=== PATIENT | female | born 1975 | race Caucasian/White ===

== ENCOUNTER → 2016-10-05 | Outpatient (REF) | payer BC ==
[~2016-10-05] MED LIST: ATEN25TA PO; CYTO25TA PO; DOXE150C7 PO; DULO30CA PO; LYRI200C PO; PLAQUENIL PO
[2016-10-05 12:17] LABS: PERCENT SATURATION 20.8 % (13.2-37.4)
[2016-10-05 12:20] LABS: FREE T4 0.51 NG/DL (0.76-1.46)
== END ==
LOC: M SFHCCLAY 07:36
PROVIDERS: ATTEND Family Medicine
DX: M79.7 Fibromyalgia (principal); Z98.84 Bariatric surgery status; E03.9 Hypothyroidism, unspecified; M85.80 Other specified disorders of bone density and structure, unspecified site

== ENCOUNTER → 2016-11-02 | Outpatient (REF) | payer BC ==
[2016-11-02 11:50] LABS: MEAN CORPUSCULAR HEMOGLOBIN 28.3 pg (27.0-33.0); MEAN CORPUSCULAR HGB CONC 33.5 g/dl (32.0-36.5); MEAN CORPUSCULAR VOLUME 84.5 fl (80.0-96.0); RED CELL DISTRIBUTION WIDTH 13.3 % (11.5-14.5); WHITE BLOOD COUNT 6.3 K/mm3 (4.0-10.0)
[2016-11-02 12:19] LABS: FERRITIN 73 NG/ML (8-252)
[2016-11-02 12:20] LABS: ANION GAP 6 MEQ/L (8-16); BLOOD UREA NITROGEN 12 MG/DL (7-18); CALCIUM LEVEL 9.2 MG/DL (8.5-10.1); CARBON DIOXIDE LEVEL 33 MEQ/L (21-32); CHLORIDE LEVEL 102 MEQ/L (98-107); CREATININE FOR GFR 0.62 MG/DL (0.55-1.02); GLOMERULAR FILTRATION RATE > 60.0 (>58); GLUCOSE, FASTING 98 MG/DL (70-105); POTASSIUM SERUM 4.7 MEQ/L (3.5-5.1); SODIUM LEVEL 141 MEQ/L (136-145)
== END ==
LOC: M SFHCCLAY 07:06
PROVIDERS: ATTEND Family Medicine
DX: M79.7 Fibromyalgia (principal); G89.4 Chronic pain syndrome; Z98.84 Bariatric surgery status; E56.9 Vitamin deficiency, unspecified

== ENCOUNTER → 2016-11-12 | Outpatient (CLI) | payer BC | LOC: M LAB 07:42 | PROVIDERS: ATTEND Family Medicine | DX: M79.7 Fibromyalgia (principal); Z98.84 Bariatric surgery status; E03.9 Hypothyroidism, unspecified; M85.80 Other specified disorders of bone density and structure, unspecified site ==

== ENCOUNTER → 2016-12-03 | Outpatient (REF) | payer BC ==
[2016-12-03 11:39] LABS: FERRITIN 52 NG/ML (8-252)
[2016-12-03 11:41] LABS: FREE T4 0.68 NG/DL (0.76-1.46)
== END ==
LOC: M SFHCCLAY 07:23
PROVIDERS: ATTEND Family Medicine
DX: E21.3 Hyperparathyroidism, unspecified (principal); E61.1 Iron deficiency; M79.7 Fibromyalgia

== ENCOUNTER → 2016-12-21 | Outpatient (CLI) | payer BC ==
--- NOTE | 2016-12-21 16:14 | REP ---
MRI brain without contrast: History: Muscle hypertonicity. . Comparison study: August 05, 2015. Technique: Axial and sagittal imaging planes are utilized for T1 and T2-weighted scans. Sequences include spin-echo, fast spin echo, FLAIR, and diffusion weighted sequences. MRI findings: No bony calvarial lesion is seen. Craniocervical junction and upper cervical cord are normal in appearance. There is no MR evidence of significant paranasal sinus disease. No intraorbital abnormality is seen. The lateral, third, and fourth ventricles are normal in size and position. Qureshi-white differentiation pattern is intact above and below the tentorium. There is no evidence of intracranial hemorrhage. No mass, infarction, extra-axial fluid collection or midline shift is seen. No abnormal white matter lesion is seen. Impression: Negative noncontrast brain MRI study. Signed by Fernando Earl MD 12/21/2016 03:59 P
== END ==
LOC: M RAD 14:52
PROVIDERS: ATTEND Family Medicine
DX: M62.89 Other specified disorders of muscle (principal)

== ENCOUNTER → 2017-01-14 | Outpatient (REF) | payer BC ==
[2017-01-14 12:22] LABS: MEAN CORPUSCULAR HEMOGLOBIN 28.2 pg (27.0-33.0); MEAN CORPUSCULAR HGB CONC 32.8 g/dl (32.0-36.5); MEAN CORPUSCULAR VOLUME 85.9 fl (80.0-96.0); RED CELL DISTRIBUTION WIDTH 13.5 % (11.5-14.5); WHITE BLOOD COUNT 6.6 K/mm3 (4.0-10.0)
[2017-01-15 14:13] LABS: TISSUE TRANSGLUTAMINASE IgG <2 U/mL (0-5)
== END ==
LOC: M SFHCCLAY 06:57
PROVIDERS: ATTEND Family Medicine
DX: D50.9 Iron deficiency anemia, unspecified (principal)

== ENCOUNTER → 2017-02-23 | Outpatient (REF) | payer BC ==
[~2017-02-23] MED LIST changes: +AMOX500C PO; -CYTO25TA PO; +CYTO25TA6 PO; +LEVO25TA5 PO
[2017-02-23 11:18] LABS: MEAN CORPUSCULAR HEMOGLOBIN 28.7 pg (27.0-33.0); MEAN CORPUSCULAR HGB CONC 33.5 g/dl (32.0-36.5); MEAN CORPUSCULAR VOLUME 85.7 fl (80.0-96.0); RED CELL DISTRIBUTION WIDTH 13.3 % (11.5-14.5); WHITE BLOOD COUNT 6.5 K/mm3 (4.0-10.0)
[2017-02-23 11:28] LABS: PERCENT SATURATION 14.6 % (13.2-37.4)
== END ==
LOC: M SFHCCLAY 07:04
PROVIDERS: ATTEND Family Medicine
DX: E61.1 Iron deficiency (principal)

== ENCOUNTER 2017-03-07 08:00 | Outpatient (CLI) | payer BC ==
[~2017-03-07] VITALS: Ht 185.4 cm; Wt 130.9 kg
[~2017-03-07 08:00] MED LIST changes: -AMOX500C PO; -LEVO25TA5 PO
[2017-03-07] MEDS ORDERED: IRON SUCROSE 500 MG in NS 250 ML IV ONE (09:00)
[2017-03-07] MEDS ORDERED: AMOX500C PO (16:09)
[2017-03-07] MEDS ORDERED: LEVO25TA5 PO (16:13)
== END 2017-03-07 12:40 | disposition home or self-care (01) ==
LOC: M INFU 08:00
PROVIDERS: ATTEND Family Medicine
DX: D50.9 Iron deficiency anemia, unspecified (principal); I10 Essential (primary) hypertension; E78.00 Pure hypercholesterolemia, unspecified; M19.90 Unspecified osteoarthritis, unspecified site; M32.9 Systemic lupus erythematosus, unspecified; Z98.84 Bariatric surgery status; Z79.899 Other long term (current) drug therapy; Z88.2 Allergy status to sulfonamides; Z88.8 Allergy status to other drugs, medicaments and biological substances
CPT/HCPCS: 96365; 96366; J1756

== ENCOUNTER 2017-04-01 08:02 | Outpatient (CLI) | payer BC ==
[~2017-04-01] VITALS: Ht 185.4 cm; Wt 103.9 kg
[~2017-04-01 08:02] MED LIST changes: +AMOX500C PO; +IRON SUCROSE 500 MG in NS 250 ML IV ONE; +LEVO25TA5 PO
== END 2017-04-01 12:30 | disposition home or self-care (01) ==
LOC: M INFU 08:02
PROVIDERS: ATTEND Family Medicine
DX: D50.9 Iron deficiency anemia, unspecified (principal); Z98.84 Bariatric surgery status; Z98.0 Intestinal bypass and anastomosis status; Z88.2 Allergy status to sulfonamides; Z88.8 Allergy status to other drugs, medicaments and biological substances; Z79.52 Long term (current) use of systemic steroids; Z79.899 Other long term (current) drug therapy
CPT/HCPCS: 96365; 96366; J1756

== ENCOUNTER → 2017-05-04 | Outpatient (REF) | payer BC ==
[~2017-05-04] MED LIST changes: -IRON SUCROSE 500 MG in NS 250 ML IV ONE
[2017-05-06 00:55] LABS: Lyme Disease IgG/IgM Antibodie <0.91 ISR (0.00-0.90); Lyme Disease IgM Ab Quantitati <0.80 index (0.00-0.79)
== END ==
LOC: M SFHCLERA 09:54
PROVIDERS: ATTEND Physician Assistant
DX: M25.561 Pain in right knee (principal); M25.562 Pain in left knee

== ENCOUNTER → 2017-07-29 | Outpatient (REF) | payer BC ==
[2017-07-29 11:44] LABS: IONIZED CALCIUM 4.9 MG/DL (4.5-5.3)
[2017-07-29 12:14] LABS: ANION GAP 7 MEQ/L (8-16); BLOOD UREA NITROGEN 9 MG/DL (7-18); CALCIUM LEVEL 8.8 MG/DL (8.5-10.1); CARBON DIOXIDE LEVEL 28 MEQ/L (21-32); CHLORIDE LEVEL 106 MEQ/L (98-107); CREATININE FOR GFR 0.54 MG/DL (0.55-1.02); FREE T4 0.44 NG/DL (0.76-1.46); GLOMERULAR FILTRATION RATE > 60.0 (>58); GLUCOSE, FASTING 93 MG/DL (70-105); POTASSIUM SERUM 4.3 MEQ/L (3.5-5.1); SODIUM LEVEL 141 MEQ/L (136-145)
== END ==
LOC: M SFHCCLAY 07:09
PROVIDERS: ATTEND Family Medicine
DX: E03.9 Hypothyroidism, unspecified (principal); Z98.84 Bariatric surgery status

== ENCOUNTER → 2017-09-11 | Outpatient (REF) | payer BC | LOC: M LAB REF 08:48 | DX: R19.7 Diarrhea, unspecified (principal) ==

== ENCOUNTER 2017-09-16 06:58 | Day surgery (SDC) | payer BC ==
[2017-09-16] MEDS: NS 1,000 ML IV (07:30)
[2017-09-16] MEDS ORDERED: LIDOCAINE 2% INJ 100 MG/5 ML SDV (FOR ANES.) As Ordered ×2 (08:29)
[2017-09-16] MEDS ORDERED: PROPOFOL 200 MG/20 ML VIAL As Ordered ×2 (08:30)
== END 2017-09-16 09:39 | disposition home or self-care (01) ==
LOC: M OPP 06:58
DX: D12.0 Benign neoplasm of cecum (principal); K64.8 Other hemorrhoids; K63.89 Other specified diseases of intestine; K52.9 Noninfective gastroenteritis and colitis, unspecified; D50.9 Iron deficiency anemia, unspecified; I10 Essential (primary) hypertension; E03.9 Hypothyroidism, unspecified; E21.3 Hyperparathyroidism, unspecified; Z98.0 Intestinal bypass and anastomosis status; Z98.84 Bariatric surgery status
CPT/HCPCS: 45380

== ENCOUNTER → 2017-09-28 | Outpatient (REF) | payer BC ==
[2017-09-28 11:21] LABS: HEMATOCRIT 40.2 % (36.0-47.0); HEMOGLOBIN 13.3 g/dl (12.0-16.0); MEAN CORPUSCULAR HEMOGLOBIN 28.3 pg (27.0-33.0); MEAN CORPUSCULAR HGB CONC 33.1 g/dl (32.0-36.5); MEAN CORPUSCULAR VOLUME 85.5 fl (80.0-96.0); PLATELET COUNT, AUTOMATED 223 10^3/uL (150-450); RED CELL DISTRIBUTION WIDTH 12.7 % (11.5-14.5); WHITE BLOOD COUNT 6.3 10^3/uL (4.0-10.0)
[2017-09-28 11:44] LABS: FREE T3 2.7 PG/ML (2.2-4.0); FREE T4 0.54 NG/DL (0.76-1.46); IRON (FE) 91 UG/DL (50-170); PERCENT SATURATION 32.2 % (13.2-45.0); THYROID STIMULATING HORMONE 0.706 uIU/ML (0.358-3.740); TOTAL IRON BINDING CAPACITY 283 UG/DL (250-450)
[2017-09-28 11:46] LABS: TOTAL 25(OH) VITAMIN D 35.6 NG/ML (30.0-100.0)
== END ==
LOC: M SFHCCLAY 07:02
DX: D50.9 Iron deficiency anemia, unspecified (principal); E03.9 Hypothyroidism, unspecified; E55.9 Vitamin D deficiency, unspecified
CPT/HCPCS: 83550

== ENCOUNTER → 2017-09-28 | Outpatient (REF) | payer BC ==
[2017-09-28 11:22] LABS: BASO % 0.3 % (0.0-1.0); EOS # 0.2 10^3/uL (0.0-0.50); EOS % 2.6 % (0.0-3.0); HEMATOCRIT 40.1 % (36.0-47.0); HEMOGLOBIN 13.2 g/dl (12.0-16.0); IMMATURE GRANULOCYTE % 0.2 % (0-3.0); LYMPH # 2.2 10^3/uL (1.5-4.5); LYMPH % 36.1 % (24.0-44.0); MEAN CORPUSCULAR HEMOGLOBIN 28.3 pg (27.0-33.0); MEAN CORPUSCULAR HGB CONC 32.9 g/dl (32.0-36.5); MEAN CORPUSCULAR VOLUME 86.1 fl (80.0-96.0); MONO # 0.5 10^3/uL (0.0-0.8); MONO % 8.2 % (0.0-5.0); NEUTROPHILS # 3.2 10^3/uL (1.8-7.7); NEUTROPHILS % 52.6 % (36.0-66.0); PLATELET COUNT, AUTOMATED 211 10^3/uL (150-450); RED BLOOD COUNT 4.66 10^6/uL (4.00-5.40); RED CELL DISTRIBUTION WIDTH 12.9 % (11.5-14.5); WHITE BLOOD COUNT 6.1 10^3/uL (4.0-10.0)
[2017-09-28 11:40] LABS: ALBUMIN 3.6 GM/DL (3.2-5.2); ALBUMIN/GLOBULIN RATIO 1.24 (1.00-1.93); ALKALINE PHOSPHATASE 70 U/L (45-117); ALT/SGPT 72 U/L (12-78); ANION GAP 6 MEQ/L (8-16); AST/SGOT 49 U/L (7-37); BILIRUBIN,DIRECT 0.1 MG/DL (0.0-0.2); BILIRUBIN,TOTAL 0.5 MG/DL (0.2-1.0); BLOOD UREA NITROGEN 8 MG/DL (7-18); CALCIUM LEVEL 8.9 MG/DL (8.5-10.1); CARBON DIOXIDE LEVEL 31 MEQ/L (21-32); CHLORIDE LEVEL 102 MEQ/L (98-107); CREATININE FOR GFR 0.55 MG/DL (0.55-1.30); FERRITIN 205 NG/ML (8-252); GLOMERULAR FILTRATION RATE > 60.0 (>58); GLUCOSE, FASTING 89 MG/DL (70-100); IRON (FE) 92 UG/DL (50-170); PERCENT SATURATION 30.9 % (13.2-45.0); POTASSIUM SERUM 3.9 MEQ/L (3.5-5.1); SODIUM LEVEL 139 MEQ/L (136-145); TOTAL IRON BINDING CAPACITY 298 UG/DL (250-450); TOTAL PROTEIN 6.5 GM/DL (6.4-8.2)
[2017-09-28 11:47] LABS: VITAMIN B12 LEVEL 510 PG/ML
[2017-09-28 11:48] LABS: FOLATE 12.9 NG/ML
== END ==
LOC: M LABDRAWC 11:03
DX: R19.7 Diarrhea, unspecified (principal)
CPT/HCPCS: 82746

== ENCOUNTER → 2018-02-20 | Outpatient (REF) | payer BC ==
[2018-02-20 11:56] LABS: HEMATOCRIT 40.4 % (36.0-47.0); HEMOGLOBIN 13.3 g/dl (12.0-15.5); MEAN CORPUSCULAR HEMOGLOBIN 28.2 pg (27.0-33.0); MEAN CORPUSCULAR HGB CONC 32.9 g/dl (32.0-36.5); MEAN CORPUSCULAR VOLUME 85.8 fl (80.0-96.0); PLATELET COUNT, AUTOMATED 242 10^3/uL (150-450); RED BLOOD COUNT 4.71 10^6/uL (4.00-5.40); RED CELL DISTRIBUTION WIDTH 12.6 % (11.5-14.5); WHITE BLOOD COUNT 7.1 10^3/uL (4.0-10.0)
[2018-02-20 12:48] LABS: IRON (FE) 76 UG/DL (50-170); PERCENT SATURATION 26.8 % (13.2-45.0); TOTAL IRON BINDING CAPACITY 284 UG/DL (250-450)
== END ==
LOC: M SFHCCLAY 07:04
DX: G25.81 Restless legs syndrome (principal); E61.1 Iron deficiency
CPT/HCPCS: 83550

== ENCOUNTER → 2018-03-31 | Outpatient (REF) | payer BC ==
[2018-03-31 11:40] LABS: FREE T3 2.2 PG/ML (2.2-4.0); FREE T4 0.46 NG/DL (0.76-1.46); IRON (FE) 52 UG/DL (50-170); THYROID STIMULATING HORMONE 0.235 uIU/ML (0.358-3.740); TOTAL IRON BINDING CAPACITY 273 UG/DL (250-450)
== END ==
LOC: M SFHCCLAY 07:15
DX: D50.9 Iron deficiency anemia, unspecified (principal); E03.9 Hypothyroidism, unspecified
CPT/HCPCS: 83550

== ENCOUNTER → 2018-07-21 | Outpatient (REF) | payer BC ==
[2018-07-21 11:36] LABS: HEMATOCRIT 41.6 % (36.0-47.0); HEMOGLOBIN 13.8 g/dl (12.0-15.5); MEAN CORPUSCULAR HEMOGLOBIN 27.4 pg (27.0-33.0); MEAN CORPUSCULAR HGB CONC 33.2 g/dl (32.0-36.5); MEAN CORPUSCULAR VOLUME 82.7 fl (80.0-96.0); PLATELET COUNT, AUTOMATED 269 10^3/uL (150-450); RED BLOOD COUNT 5.03 10^6/uL (4.00-5.40); WHITE BLOOD COUNT 7.9 10^3/uL (4.0-10.0)
[2018-07-21 11:56] LABS: IRON (FE) 90 UG/DL (50-170); PERCENT SATURATION 32.7 % (13.2-45.0); TOTAL IRON BINDING CAPACITY 275 UG/DL (250-450)
== END ==
LOC: M SFHCCLAY 07:07
DX: G25.81 Restless legs syndrome (principal); D50.9 Iron deficiency anemia, unspecified
CPT/HCPCS: 83550

== ENCOUNTER → 2018-09-01 | Outpatient (CLI) | payer BC ==
[~2018-09-01] MED LIST changes: +DOXE10CA PO; +DOXE150C PO; -DOXE150C7 PO; +MULT1TAB10 PO; +REQU1TAB16 PO; +VITA100067 PO; +VITA50005 PO; +VITA500T3 PO
--- NOTE | 2018-09-01 17:56 | REPMRS ---
Patient History The patient states she had a clinical breast exam in 06/2018. Patient is nulliparous. Family history of pancreatic cancer at age 50 or over , ovarian cancer at age 50 or over , and breast cancer at age 50 or over in maternal aunt, breast cancer at age 50 or over in maternal aunt, prostate cancer at age 50 or over in maternal grandfather, breast cancer at age 50 or over in paternal grandmother. Took hormonal contraceptives for 8 years. Digital Woman Screen Mammo: September 01, 2018 - Exam #: [id number] Bilateral CC and MLO view(s) were taken. Technologist: Monse Chavez, Technologist Prior study comparison: June 10, 2017, digital woman screen mammo performed at [facility]. November 07, 2015, digital bilateral screening mammo, performed at [facility]. October 16, 2010, bilateral digital woman screen mammo, performed at [facility]. FINDINGS: The breast tissue is heterogeneously dense. This may lower the sensitivity of mammography. There is a moderate amount of heterogeneously dense fibroglandular tissue which is fairly symmetric. There is no interval development of dominant mass, architectural distortion, or clustered microcalcification typical of malignancy. There has been no change in the appearance of the mammogram from the prior studies. 3-D tomosynthesis shows no additional findings. Assessment: BI-RADS/ACR category 1 mammogram. Negative. Recommendation Breast MRI of both breasts in 6 months. Routine screening mammogram of both breasts in 1 year (for women over age 40). This patient's Lifetime Breast Cancer RIsk is estimated at 25.4 %. Annual screening Breast MRI scanniing is recommended for patient's whose lifetime risk assessment is over 20%. This mammogram was interpreted with the aid of an FDA-approved computer-aided dectection system. Electronically Signed By: Marciano Earl MD 09/01/18 [id number]
== END ==
LOC: M WHC 13:36
PROVIDERS: ATTEND Nurse Practitioner Women's Health
DX: Z12.31 Encounter for screening mammogram for malignant neoplasm of breast (principal); Z92.0 Personal history of contraception

== ENCOUNTER → 2018-10-13 | Outpatient (REF) | payer BC | LOC: M SFHCCLAY 14:10 | PROVIDERS: ATTEND Family Medicine | DX: L02.818 Cutaneous abscess of other sites (principal) ==

== ENCOUNTER → 2019-02-21 | Outpatient (CLI) | payer BC ==
[~2019-02-21] MED LIST changes: +CYAN500T8 PO; -DULO30CA PO; +DULO30CA9 PO; +PROHANCE 279.3MG/ML 15ML VIAL (A9576) As Ordered ONE; +PROHANCE 279.3MG/ML 5ML VIAL (A9576) As Ordered ONE; -VITA500T3 PO
--- NOTE | 2019-02-21 18:46 | REP ---
BILATERAL BREAST MRI WITH AND WITHOUT CONTRAST: HISTORY: Breast cancer in two maternal aunts and a paternal grandmother. Ismael Brooks lifetime risk of breast cancer 25.4%. Correlation mammogram 09/01/2018 which showed dense breast parenchyma. TECHNIQUE: Multiple sequences obtained in the axial, coronal and sagittal planes prior to and following the intravenous administration of 17 mL ProHance. Moderate fibroglandular tissue is seen diffusely bilaterally. There are multiple subcentimeter cysts diffusely bilaterally. Nonenlarged axillary lymph nodes are present without evidence of axillary adenopathy. There is mild background parenchymal enhancement. There is no suspicious enhancing mass or morphologic abnormality. IMPRESSION: BI-RADS category 1 negative bilateral breast MRI. No suspicious mass or morphologic abnormality. Yearly supplemental screening MRI of the breasts is recommended for patients with lifetime risk of breast cancer at 20% or greater. Electronically Signed by Ran Qureshi MD 02/22/2019 01:54 P
== END ==
LOC: M RAD 13:29
PROVIDERS: ATTEND Family Medicine
DX: Z12.39 Encounter for other screening for malignant neoplasm of breast (principal); Z80.3 Family history of malignant neoplasm of breast
CPT/HCPCS: A9576; C8908

== ENCOUNTER → 2019-04-12 | Outpatient (REF) | payer BC ==
[~2019-04-12] MED LIST changes: -PROHANCE 279.3MG/ML 15ML VIAL (A9576) As Ordered ONE; -PROHANCE 279.3MG/ML 5ML VIAL (A9576) As Ordered ONE
[2019-04-12 11:50] LABS: HEMATOCRIT 42.6 % (36.0-47.0); HEMOGLOBIN 14.1 g/dl (12.0-15.5); MEAN CORPUSCULAR HEMOGLOBIN 28.7 pg (27.0-33.0); MEAN CORPUSCULAR HGB CONC 33.1 g/dl (32.0-36.5); MEAN CORPUSCULAR VOLUME 86.8 fl (80.0-96.0); PLATELET COUNT, AUTOMATED 251 10^3/uL (150-450); RED BLOOD COUNT 4.91 10^6/uL (4.00-5.40); WHITE BLOOD COUNT 9.1 10^3/uL (4.0-10.0)
[2019-04-12 12:03] LABS: FREE T4 0.4 NG/DL (0.76-1.46); LUTEINIZING HORMONE 7.2 mIU/mL; PERCENT SATURATION 23.9 % (13.2-45.0); THYROID STIMULATING HORMONE 0.061 uIU/ML (0.358-3.740)
[2019-04-12 13:24] LABS: FREE T3 2.9 PG/ML (2.2-4.0)
== END ==
LOC: M SFHCCLAY 07:12
PROVIDERS: ATTEND Family Medicine
DX: G89.4 Chronic pain syndrome (principal); E61.1 Iron deficiency; G25.81 Restless legs syndrome; N95.1 Menopausal and female climacteric states; E03.9 Hypothyroidism, unspecified

== ENCOUNTER → 2019-05-02 | Outpatient (REF) | payer BC | LOC: M SFHCCLAY 11:26 | PROVIDERS: ATTEND Family Medicine | DX: R19.7 Diarrhea, unspecified (principal) ==

== ENCOUNTER → 2019-07-09 | Outpatient (REF) | payer BC ==
[2019-07-09 11:31] LABS: HEMATOCRIT 39.7 % (36.0-47.0); MEAN CORPUSCULAR HEMOGLOBIN 28.4 pg (27.0-33.0); MEAN CORPUSCULAR HGB CONC 32.7 g/dl (32.0-36.5); MEAN CORPUSCULAR VOLUME 86.7 fl (80.0-96.0); PLATELET COUNT, AUTOMATED 244 10^3/uL (150-450); RED BLOOD COUNT 4.58 10^6/uL (4.00-5.40)
[2019-07-09 11:49] LABS: ALBUMIN 3.6 GM/DL (3.2-5.2); ALT/SGPT 35 U/L (12-78); BILIRUBIN,TOTAL 0.5 MG/DL (0.2-1.0); BLOOD UREA NITROGEN 6 MG/DL (7-18); CALCIUM LEVEL 9.3 MG/DL (8.5-10.1); CARBON DIOXIDE LEVEL 30 MEQ/L (21-32); CHLORIDE LEVEL 106 MEQ/L (98-107); CREATININE FOR GFR 0.62 MG/DL (0.55-1.30); FREE T3 1.6 PG/ML (2.2-4.0); FREE T4 0.48 NG/DL (0.76-1.46); GLOMERULAR FILTRATION RATE > 60.0 (>58); GLUCOSE, FASTING 91 MG/DL (70-100); IRON (FE) 73 UG/DL (50-170); POTASSIUM SERUM 4.3 MEQ/L (3.5-5.1); PTH INTACT 106.1 PG/ML (18.5-88.0); SODIUM LEVEL 139 MEQ/L (136-145); TOTAL IRON BINDING CAPACITY 281 UG/DL (250-450); TOTAL PROTEIN 6.5 GM/DL (6.4-8.2)
[2019-07-10 10:26] LABS: TOTAL 25(OH) VITAMIN D 64.8 NG/ML (30.0-100.0)
== END ==
LOC: M SFHCCLAY 07:16
PROVIDERS: ATTEND Family Medicine
DX: G25.81 Restless legs syndrome (principal); D50.9 Iron deficiency anemia, unspecified; Z98.84 Bariatric surgery status; E03.9 Hypothyroidism, unspecified

== ENCOUNTER → 2019-09-11 | Outpatient (CLI) | payer BC ==
--- NOTE | 2019-09-11 17:13 | REPMRS ---
Patient History The patient states she has not had a clinical breast exam in over a year. Family history of pancreatic cancer at age 50 or over , ovarian cancer at age 50 or over , and breast cancer at age 50 or over in maternal aunt, breast cancer at age 50 or over in maternal aunt, prostate cancer at age 50 or over in maternal grandfather, breast cancer at age 50 or over in paternal grandmother. Took hormonal contraceptives for 8 years. 3D TOMOSYNTHESIS WAS PERFORMED. Digital Woman Screen Mammo: September 11, 2019 - Exam #: [id number] Bilateral CC and MLO view(s) were taken. Technologist: Monse Chavez, Technologist Prior study comparison: September 01, 2018, bilateral digital woman screen mammo performed at [facility]. June 10, 2017, digital woman screen mammo performed at [facility]. FINDINGS: The breast tissue is heterogeneously dense. This may lower the sensitivity of mammography. There has been no change in the appearance of the mammogram from the prior studies. There is a moderate amount of residual fibroglandular tissue which is fairly symmetric. There is no interval development of dominant mass, areas of architectural distortion, or clustered microcalcification typical of malignancy. Assessment: BI-RADS/ACR category 1 mammogram. Negative Mammogram. Recommendation Routine screening mammogram in 1 year (for women over age 40). This mammogram was interpreted with the aid of an FDA-approved computer-aided dectection system. THE LIFETIME RISK OF BREAST CANCER IS 25.1%, THEREFORE SUPPLEMENTAL SCREENING MRI OF THE BREASTS IS RECOMMENDED IN 6 MONTHS. Electronically Signed By: Ran Qureshi MD 09/11/19 [id number]
== END ==
LOC: M WHC 15:08
PROVIDERS: ATTEND Family Medicine
DX: Z12.31 Encounter for screening mammogram for malignant neoplasm of breast (principal); N25.81 Secondary hyperparathyroidism of renal origin

== ENCOUNTER → 2019-10-15 | Outpatient (REF) | payer BC ==
[2019-10-15 13:01] LABS: FREE T3 2.2 PG/ML (2.2-4.0); FREE T4 0.49 NG/DL (0.76-1.46); THYROID STIMULATING HORMONE 0.03 uIU/ML (0.358-3.740)
[2019-10-16 08:29] LABS: PERCENT SATURATION 18.6 % (13.2-45.0)
== END ==
LOC: M SFHCCLAY 07:01
PROVIDERS: ATTEND Family Medicine
DX: N25.81 Secondary hyperparathyroidism of renal origin (principal); E03.9 Hypothyroidism, unspecified

== ENCOUNTER → 2019-11-07 | Outpatient (REF) | payer BC ==
[2019-11-07 11:46] LABS: CORTISOL AM 24.1 UG/DL (4.3-22.4); FREE T3 2.1 PG/ML (2.2-4.0); FREE T4 0.45 NG/DL (0.76-1.46); PROLACTIN 14.5 NG/ML; THYROID STIMULATING HORMONE 0.045 uIU/ML (0.358-3.740)
== END ==
LOC: M SFHCCLAY 08:07
PROVIDERS: ATTEND Family Medicine
DX: E03.9 Hypothyroidism, unspecified (principal)

== ENCOUNTER → 2020-02-21 | Outpatient (REF) | payer BC ==
[2020-02-21 12:12] LABS: HEMATOCRIT 41.4 % (36.0-47.0); HEMOGLOBIN 13.3 g/dl (12.0-15.5); MEAN CORPUSCULAR HEMOGLOBIN 27.7 pg (27.0-33.0); MEAN CORPUSCULAR HGB CONC 32.1 g/dl (32.0-36.5); MEAN CORPUSCULAR VOLUME 86.1 fl (80.0-96.0); PLATELET COUNT, AUTOMATED 249 10^3/uL (150-450); RED BLOOD COUNT 4.81 10^6/uL (4.00-5.40); WHITE BLOOD COUNT 7.9 10^3/uL (4.0-10.0)
[2020-02-21 13:07] LABS: FREE T3 2.2 PG/ML (2.2-4.0); FREE T4 0.53 NG/DL (0.76-1.46); PERCENT SATURATION 21.5 % (13.2-45.0); THYROID STIMULATING HORMONE 0.028 uIU/ML (0.358-3.740)
== END ==
LOC: M SFHCCLAY 08:05
PROVIDERS: ATTEND Family Medicine
DX: E61.1 Iron deficiency (principal); E03.9 Hypothyroidism, unspecified; N93.8 Other specified abnormal uterine and vaginal bleeding

== ENCOUNTER → 2020-03-04 | Outpatient (CLI) | payer BC ==
[~2020-03-04] MED LIST changes: +PROHANCE 279.3MG/ML 15ML VIAL As Ordered ONE; +PROHANCE 279.3MG/ML 5ML VIAL As Ordered ONE
--- NOTE | 2020-03-04 17:52 | REP ---
BILATERAL BREAST MRI STUDY WITHOUT AND WITH IV GADOLINIUM: HISTORY: Breast cancer screening. High risk patient. Comparison breast MRI study February 21, 2019. Comparison mammography September 11, 2019. TECHNIQUE: Three Meghan MRI imaging was performed with a dedicated breast coil. Axial, coronal, and sagittal T1 and T2-weighted scans were obtained with and without fat saturation in the usual fashion. The study includes dynamically acquired post gadolinium enhanced imaging subtraction imaging. Maximal intensity projection and multiplanar re-formation imaging is included as well. The study was interpreted with the aid of [employer], an FDA approved computer-aided detection (CAD) software program, on a dedicated breast MRI work station. The gadolinium enhancement dose is 17 mL of intravenous ProHance. FINDINGS: There is a small cyst in the 12-o'clock position of the right breast under a centimeter. There is no evidence of axillary lymphadenopathy on either side. There is a moderate pattern of symmetric fibroglandular tissue bilaterally. There is a mild pattern background parenchymal enhancement. High-resolution pre- and postcontrast images show no suspicious morphologic abnormality in either breast. No suspicious focus of contrast enhancement and washout is seen in either breast to suggest malignancy on dynamically acquired sequential postcontrast images. Subtraction images show no additional abnormality. IMPRESSION: BI-RADS category 1 negative bilateral breast MRI findings. Annual screening mammography and breast MR imaging should continue at alternating 6-month intervals. Electronically Signed by Fernando Earl MD 03/05/2020 12:46 P
== END ==
LOC: M RAD 14:52
PROVIDERS: ATTEND Family Medicine
DX: Z12.31 Encounter for screening mammogram for malignant neoplasm of breast (principal); Z91.89 Other specified personal risk factors, not elsewhere classified
CPT/HCPCS: A9576; C8908

== ENCOUNTER → 2020-05-23 | Outpatient (REF) | payer BC ==
[~2020-05-23] MED LIST changes: -PROHANCE 279.3MG/ML 15ML VIAL As Ordered ONE; -PROHANCE 279.3MG/ML 5ML VIAL As Ordered ONE
== END ==
LOC: M SFHCCLAY 07:06
PROVIDERS: ATTEND Family Medicine
DX: Z53.9 Procedure and treatment not carried out, unspecified reason (principal); E03.9 Hypothyroidism, unspecified; F32.9 Major depressive disorder, single episode, unspecified

== ENCOUNTER → 2020-05-29 | Outpatient (REF) | payer BC ==
[2020-05-29 12:38] LABS: MEAN CORPUSCULAR HEMOGLOBIN 27.5 pg (27.0-33.0); MEAN CORPUSCULAR HGB CONC 31.7 g/dl (32.0-36.5); MEAN CORPUSCULAR VOLUME 86.9 fl (80.0-96.0); PLATELET COUNT, AUTOMATED 267 10^3/uL (150-450); RED BLOOD COUNT 4.72 10^6/uL (4.00-5.40); WHITE BLOOD COUNT 7.5 10^3/uL (4.0-10.0)
[2020-05-29 13:09] LABS: FREE T3 2.5 PG/ML (2.2-4.0); FREE T4 0.57 NG/DL (0.76-1.46); IRON (FE) 61 UG/DL (50-170); THYROID STIMULATING HORMONE < 0.005 uIU/ML (0.358-3.740)
[2020-05-29 17:13] LABS: PTH INTACT 120.5 PG/ML (18.5-88.0)
[2020-05-29 17:14] LABS: VITAMIN B12 LEVEL 375 PG/ML (247-911)
== END ==
LOC: M SFHCCLAY 09:06
PROVIDERS: ATTEND Family Medicine
DX: E61.1 Iron deficiency (principal); E03.9 Hypothyroidism, unspecified; N25.81 Secondary hyperparathyroidism of renal origin; F32.9 Major depressive disorder, single episode, unspecified

== ENCOUNTER → 2020-05-30 | Outpatient (REF) | payer BC | LOC: M SFHCCLAY 15:41 | PROVIDERS: ATTEND Family Medicine | DX: Z98.84 Bariatric surgery status (principal) ==

== ENCOUNTER → 2020-06-02 | Outpatient (CLI) | payer BC ==
--- NOTE | 2020-06-02 14:15 | REP ---
INDICATION: FOOT PAIN, RIGHT, 2nd,3rd,4th toe COMPARISON: None. TECHNIQUE: AP, lateral, bilateral oblique views right toes. FINDINGS: Oblique view demonstrates a small nondisplaced corner fracture at the base of the 4th toe proximal phalanx. Remainder examination demonstrates generalized age-related changes along with mild arthritic changes involving the 1st metatarsophalangeal and interphalangeal joint. IMPRESSION: Small nondisplaced acute fracture at the base of the 4th toe proximal phalanx involving the MTP joint. <Electronically signed by Christian Ramírez > 06/02/20 [id number]
== END ==
LOC: M CLY 13:31
PROVIDERS: ATTEND Family Medicine
DX: S92.514A Nondisplaced fracture of proximal phalanx of right lesser toe(s), initial encounter for closed fracture (principal); X58.XXXA Exposure to other specified factors, initial encounter; Y92.9 Unspecified place or not applicable; M79.671 Pain in right foot

== ENCOUNTER → 2020-09-04 | Outpatient (REF) | payer BC ==
[~2020-09-04] MED LIST changes: +CYAN500T14 PO; -CYAN500T8 PO
[2020-09-04 12:31] LABS: HEMATOCRIT 43.7 % (36.0-47.0); HEMOGLOBIN 14.3 g/dl (12.0-15.5); MEAN CORPUSCULAR HEMOGLOBIN 28.6 pg (27.0-33.0); MEAN CORPUSCULAR HGB CONC 32.7 g/dl (32.0-36.5); MEAN CORPUSCULAR VOLUME 87.4 fl (80.0-96.0); PLATELET COUNT, AUTOMATED 321 10^3/uL (150-450); WHITE BLOOD COUNT 8.8 10^3/uL (4.0-10.0)
[2020-09-04 13:11] LABS: ALBUMIN 3.7 GM/DL (3.2-5.2); ALT/SGPT 31 U/L (12-78); BILIRUBIN,TOTAL 0.5 MG/DL (0.2-1.0); BLOOD UREA NITROGEN 15 MG/DL (7-18); CALCIUM LEVEL 9.5 MG/DL (8.5-10.1); CARBON DIOXIDE LEVEL 32 MEQ/L (21-32); CHLORIDE LEVEL 104 MEQ/L (98-107); CREATININE FOR GFR 0.59 MG/DL (0.55-1.30); FREE T4 0.58 NG/DL (0.76-1.46); GLOMERULAR FILTRATION RATE > 60.0 (>58); GLUCOSE, FASTING 90 MG/DL (70-100); IRON (FE) 63 UG/DL (50-170); POTASSIUM SERUM 4.7 MEQ/L (3.5-5.1); SODIUM LEVEL 140 MEQ/L (136-145); THYROID STIMULATING HORMONE 0.012 uIU/ML (0.358-3.740); TOTAL PROTEIN 6.6 GM/DL (6.4-8.2)
[2020-09-04 13:13] LABS: PTH INTACT 116.5 PG/ML (18.5-88.0)
[2020-09-08 07:37] LABS: FREE T3 2.2 PG/ML (2.2-4.0)
== END ==
LOC: M SFHCCLAY 07:10
PROVIDERS: ATTEND Family Medicine
DX: E61.1 Iron deficiency (principal); E03.9 Hypothyroidism, unspecified; N25.81 Secondary hyperparathyroidism of renal origin; Z98.84 Bariatric surgery status

== ENCOUNTER → 2020-09-30 | Outpatient (CLI) | payer BC ==
--- NOTE | 2020-09-30 17:19 | REPMRS ---
Patient History The patient states she has not had a clinical breast exam in over a year. Family history of pancreatic cancer at age 50 or over , ovarian cancer at age 50 or over , and breast cancer at age 50 or over in maternal aunt, breast cancer at age 50 or over in maternal aunt, prostate cancer at age 50 or over in maternal grandfather, breast cancer at age 50 or over in paternal grandmother. Took hormonal contraceptives for 8 years. Digital Woman Screen Mammo: September 30, 2020 - Exam #: [id number] Bilateral CC and MLO view(s) were taken. Technologist: Monse Chavez, Technologist Prior study comparison: September 11, 2019, bilateral digital woman screen mammo performed at [facility]. September 01, 2018, bilateral digital woman screen mammo performed at [facility]. June 10, 2017, digital woman screen mammo performed at [facility]. FINDINGS: The breast tissue is almost entirely fat. The Volpara volumetric breast density category is: A. There has been no change in the appearance of the mammogram from the prior studies. There is no interval development of dominant mass, architectural distortion, or grouped microcalcification typical of malignancy. 3-D tomosynthesis shows no additional findings. Assessment: BI-RADS/ACR category 1 mammogram. Negative Mammogram. Recommendation Breast MRI of both breasts in 6 months. Routine screening mammogram of both breasts in 1 year (for women over age 40). This patient's [facility] Lifetime Breast Cancer RIsk is estimated at 24.8 %. Annual screening Breast MRI scanniing is recommended for patient's whose lifetime risk assessment is over 20%. This mammogram was interpreted with the aid of an FDA-approved computer-aided dectection system. Electronically Signed By: Marciano Earl MD 09/30/20 0018
== END ==
LOC: M WHC 15:54
PROVIDERS: ATTEND Family Medicine
DX: Z12.31 Encounter for screening mammogram for malignant neoplasm of breast (principal)

== ENCOUNTER → 2020-10-07 | Outpatient (CLI) | payer BC ==
[~2020-10-07] MED LIST changes: +E-Z-GAS II EFFERVESCENT PACKET (SODIUM BICARB./CITRIC ACID/SIMETHICONE) As Ordered ONE; +E-Z-HD 98% w/w 340GM SUSP BTL As Ordered ONE; +E-Z-PAQUE 96% w/w SUSP 176GM BTL As Ordered ONE
--- NOTE | 2020-10-07 16:04 | REP ---
INDICATION: POST GASTRIC SURGERY W/ ABD PAIN. COMPARISON: None TECHNIQUE: This procedure was performed by Noemi Ramirez [facility], under the direct supervision of Dr. Earl. Images were reviewed with Dr. Earl prior to dictation. Because the patient is status post Elias-en-Y surgery liquid barium was given in the erect position as well as in the prone oblique position in order to perform a single contrast upper GI examination. FINDINGS: The rotary cutter film shows no organomegaly or pathological masses. The intestinal gas pattern is unremarkable. The oral and pharyngeal stages of deglutition were unremarkable. Esophageal transport is prompt and efficient and there is no evidence of esophagitis, stricture, or mucosal ring. There is no evidence of a hiatal hernia. There was no gastroesophageal reflux noted . The remaining stomach gilliland are normally outlined. There is free flow of contrast through the anastomosis into the small intestine. No stricture or ulcer is visualized. The visualized portion of the proximal small bowel appears normal in course and caliber. IMPRESSION: Unremarkable upper GI exam in a patient status post Elias-en-Y surgery. 0.1 minutes of fluoroscopy time was utilized for this procedure. Some fluoroscopic images are performed with last image hold technology. These images require no additional radiation. <Electronically signed by Noemi Ramirez > 10/07/20 0949 <Electronically signed by Marciano Earl > 10/07/20 1603
== END ==
LOC: M RAD 09:31
PROVIDERS: ATTEND Family Medicine
DX: Z98.84 Bariatric surgery status (principal)

== ENCOUNTER → 2020-10-10 | Outpatient (REF) | payer BC ==
[~2020-10-10] MED LIST changes: -E-Z-GAS II EFFERVESCENT PACKET (SODIUM BICARB./CITRIC ACID/SIMETHICONE) As Ordered ONE; -E-Z-HD 98% w/w 340GM SUSP BTL As Ordered ONE; -E-Z-PAQUE 96% w/w SUSP 176GM BTL As Ordered ONE
[2020-10-10 16:13] LABS: HEMATOCRIT 43.1 % (36.0-47.0); HEMOGLOBIN 14.2 g/dl (12.0-15.5); MEAN CORPUSCULAR HEMOGLOBIN 28.7 pg (27.0-33.0); MEAN CORPUSCULAR HGB CONC 32.9 g/dl (32.0-36.5); MEAN CORPUSCULAR VOLUME 87.2 fl (80.0-96.0); PLATELET COUNT, AUTOMATED 318 10^3/uL (150-450); RED BLOOD COUNT 4.94 10^6/uL (4.00-5.40); WHITE BLOOD COUNT 8.2 10^3/uL (4.0-10.0)
[2020-10-10 16:41] LABS: ERYTHROCYTE SEDIMENTATION RATE 7 mm/hr (0-20)
[2020-10-10 16:42] LABS: ALBUMIN 3.9 GM/DL (3.2-5.2); ALT/SGPT 39 U/L (12-78); BILIRUBIN,TOTAL 0.2 MG/DL (0.2-1.0); BLOOD UREA NITROGEN 14 MG/DL (7-18); C REACTIVE PROTEIN QUANTITATIV 0.33 MG/DL (0.00-0.30); CALCIUM LEVEL 9.8 MG/DL (8.5-10.1); CARBON DIOXIDE LEVEL 30 MEQ/L (21-32); CHLORIDE LEVEL 105 MEQ/L (98-107); CREATININE FOR GFR 0.51 MG/DL (0.55-1.30); GLOMERULAR FILTRATION RATE > 60.0 (>58); GLUCOSE, FASTING 92 MG/DL (70-100); POTASSIUM SERUM 4.5 MEQ/L (3.5-5.1); RHEUMATOID FACTOR QUANT < 10.0 IU/ML (<15.0); SODIUM LEVEL 139 MEQ/L (136-145); TOTAL PROTEIN 6.8 GM/DL (6.4-8.2)
[2020-10-13 21:06] LABS: ANA (HEP2) Positive (.); CYCLIC CITRULLINATED PEPTIDE 9 units (0-19)
== END ==
LOC: M SFHCCLAY 14:06
PROVIDERS: ATTEND Family Medicine
DX: M35.9 Systemic involvement of connective tissue, unspecified (principal)

== ENCOUNTER → 2020-10-31 | Outpatient (CLI) | payer BC ==
--- NOTE | 2020-11-03 14:40 | SLEEPCENT ---
NOCTURNAL POLYSOMNOGRAPHY DATE: 10/31/2020 ORDERED BY: DARCY Hi Nocturnal polysomnography was performed for evaluation of sleep physiology in this patient with a history of excessive somnolence and nonrestorative sleep. 7 hours and 40 minutes of data were reviewed. There were 418 minutes of sleep identified. Sleep latency was short at 5.5 minutes. REM latency was delayed at 210 minutes. Sleep architecture showed some minor fragmentation. There was one REM episode. Overall sleep efficiency was good at 92.7%. The electrocardiogram showed a sinus rhythm with an average heart rate of 62 beats per minute. EEG showed some coarsening in non-REM stages. No focal events were appreciated. There were normal waveforms for wake and sleep. There were only 18 respiratory events identified of 10 seconds in duration or greater for an apnea-hypopnea index of 2.6. The events that were seen were not related to sleep stage nor position. Snoring was noted over the course of the study, and arousals from respiratory events occurred 7.2 times per hour. There were no significant oxygen desaturations identified. Limb activity was noted. There was only one train of events, but the limb movement arousal index was 11.2. IMPRESSION: 1. Normal nocturnal polysomnography with snoring. 2. Possible periodic limb movement disorder (G47.61), limb movement arousal index 11.2. RECOMMENDATION: While the respiratory events were insufficient in number to suggest a formal diagnosis of obstructive sleep apnea syndrome, the patient did experience snoring and upper airway patency should be assessed. Limb activity was seen; only one significant train of events was identified, but the limb movement arousal index suggests that suppression of arousals from limb activity may help consolidate the patient's sleep.
== END ==
LOC: M SLEEP 20:00
PROVIDERS: ATTEND Physician Assistant
DX: R40.0 Somnolence (principal)

== ENCOUNTER → 2020-12-12 | Outpatient (REF) | payer BC | LOC: M SFHCCLAY 16:22 | PROVIDERS: ATTEND Family Medicine | DX: E21.3 Hyperparathyroidism, unspecified (principal) ==

== ENCOUNTER → 2020-12-15 | Outpatient (REF) | payer BC ==
[2020-12-15 15:07] LABS: BLOOD UREA NITROGEN 11 MG/DL (7-18); CARBON DIOXIDE LEVEL 32 MEQ/L (21-32); CHLORIDE LEVEL 105 MEQ/L (98-107); GLOMERULAR FILTRATION RATE > 60.0 (>58); GLUCOSE, FASTING 105 MG/DL (70-100); POTASSIUM SERUM 4.5 MEQ/L (3.5-5.1); SODIUM LEVEL 142 MEQ/L (136-145)
== END ==
LOC: M SFHCCLAY 08:26
PROVIDERS: ATTEND Family Medicine
DX: E21.3 Hyperparathyroidism, unspecified (principal)

== ENCOUNTER → 2021-03-20 | Outpatient (REF) | payer BC | LOC: M SFHCCLAY 16:50 | PROVIDERS: ATTEND Family Medicine | DX: E03.9 Hypothyroidism, unspecified (principal); Z98.84 Bariatric surgery status; N25.81 Secondary hyperparathyroidism of renal origin ==

== ENCOUNTER → 2021-06-18 | Outpatient (REF) | payer BC ==
[2021-06-18 11:46] LABS: HEMATOCRIT 42.7 % (36.0-47.0); HEMOGLOBIN 13.6 g/dl (12.0-15.5); MEAN CORPUSCULAR HEMOGLOBIN 27.6 pg (27.0-33.0); MEAN CORPUSCULAR HGB CONC 31.9 g/dl (32.0-36.5); MEAN CORPUSCULAR VOLUME 86.6 fl (80.0-96.0); PLATELET COUNT, AUTOMATED 270 10^3/uL (150-450); RED BLOOD COUNT 4.93 10^6/uL (4.00-5.40)
[2021-06-18 12:33] LABS: ALBUMIN 3.4 GM/DL (3.2-5.2); ALT/SGPT 29 U/L (12-78); BILIRUBIN,TOTAL 0.3 MG/DL (0.2-1.0); BLOOD UREA NITROGEN 12 MG/DL (7-18); CALCIUM LEVEL 9.8 MG/DL (8.5-10.1); CARBON DIOXIDE LEVEL 33 MEQ/L (21-32); CHLORIDE LEVEL 106 MEQ/L (98-107); CHOLESTEROL LEVEL 213 MG/DL (<200); CHOLESTEROL RISK RATIO 2.802 (<5); CREATININE FOR GFR 0.61 MG/DL (0.55-1.30); FREE T3 2.4 PG/ML (2.2-4.0); FREE T4 0.57 NG/DL (0.76-1.46); GLOMERULAR FILTRATION RATE > 60.0 (>58); GLUCOSE, FASTING 101 MG/DL (70-100); HDL CHOLESTEROL 76 MG/DL (>40); IRON (FE) 71 UG/DL (50-170); LDL CHOLESTEROL 122 MG/DL (<100); NON-HDL-C 137 MG/DL; PERCENT SATURATION 22.2 % (13.2-45.0); POTASSIUM SERUM 5.1 MEQ/L (3.5-5.1); SODIUM LEVEL 142 MEQ/L (136-145); TOTAL IRON BINDING CAPACITY 320 UG/DL (250-450); TOTAL PROTEIN 6.5 GM/DL (6.4-8.2); TRIGLYCERIDES LEVEL 74 MG/DL (<150)
== END ==
LOC: M SFHCCLAY 08:03
PROVIDERS: ATTEND Family Medicine
DX: E03.9 Hypothyroidism, unspecified (principal); N25.81 Secondary hyperparathyroidism of renal origin; F32.9 Major depressive disorder, single episode, unspecified

== ENCOUNTER → 2021-06-25 | Outpatient (CLI) | payer BC ==
--- NOTE | 2021-06-25 15:14 | REP ---
INDICATION: S99.922A, INJURY OF LEFT FOOT. COMPARISON: None. TECHNIQUE: Four views FINDINGS: There is a hairline fracture of the proximal phalanx of the 4th digit. There is mild to moderate asymmetric joint space narrowing involving the 1st metatarsal phalangeal joint with mild marginal osteophytosis. The remainder of the joint spaces are symmetric and well maintained. There is no acute fracture, dislocation, or subluxation. There is a type 1 os naviculare. There is a retrocalcaneal heel spur. IMPRESSION: 1. Hairline fracture proximal phalanx 4th digit. 2. Chronic changes as described above. <Electronically signed by Cesar Loza > 06/25/21 [id number]
== END ==
LOC: M CLY 13:53
PROVIDERS: ATTEND Family Medicine
DX: S99.922A Unspecified injury of left foot, initial encounter (principal); W18.30XA Fall on same level, unspecified, initial encounter; Y92.009 Unspecified place in unspecified non-institutional (private) residence as the place of occurrence of the external cause

== ENCOUNTER → 2021-11-24 | Outpatient (REF) | payer BC | LOC: M SFHCCLAY 14:17 | PROVIDERS: ATTEND Family Medicine | DX: N76.0 Acute vaginitis (principal) ==

== ENCOUNTER → 2021-12-17 | Outpatient (REF) | payer BC ==
[2021-12-17 11:57] LABS: HEMATOCRIT 39.2 % (36.0-47.0); HEMOGLOBIN 13.1 g/dl (12.0-15.5); MEAN CORPUSCULAR HEMOGLOBIN 27.8 pg (27.0-33.0); MEAN CORPUSCULAR HGB CONC 33.4 g/dl (32.0-36.5); MEAN CORPUSCULAR VOLUME 83.1 fl (80.0-96.0); PLATELET COUNT, AUTOMATED 334 10^3/uL (150-450); RED BLOOD COUNT 4.72 10^6/uL (4.00-5.40); WHITE BLOOD COUNT 9.2 10^3/uL (4.0-10.0)
[2021-12-17 12:55] LABS: ALBUMIN 3.3 GM/DL (3.2-5.2); ALT/SGPT 25 U/L (12-78); BILIRUBIN,TOTAL 0.4 MG/DL (0.2-1.0); BLOOD UREA NITROGEN 7 MG/DL (7-18); CALCIUM LEVEL 10.1 MG/DL (8.5-10.1); CARBON DIOXIDE LEVEL 34 MEQ/L (21-32); CHLORIDE LEVEL 98 MEQ/L (98-107); CREATININE FOR GFR 0.52 MG/DL (0.55-1.30); FREE T4 0.75 NG/DL (0.76-1.46); GLOMERULAR FILTRATION RATE > 60.0 (>58); GLUCOSE, FASTING 91 MG/DL (70-100); IRON (FE) 77 UG/DL (50-170); POTASSIUM SERUM 3.9 MEQ/L (3.5-5.1); SODIUM LEVEL 138 MEQ/L (136-145); THYROID STIMULATING HORMONE 0.007 uIU/ML (0.358-3.740); TOTAL IRON BINDING CAPACITY 454 UG/DL (250-450); TOTAL PROTEIN 6.6 GM/DL (6.4-8.2)
[2021-12-17 13:01] LABS: PTH INTACT 105.5 PG/ML (18.5-88.0)
== END ==
LOC: M SFHCCLAY 06:53
PROVIDERS: ATTEND Family Medicine
DX: I10 Essential (primary) hypertension (principal); F32.9 Major depressive disorder, single episode, unspecified; N25.81 Secondary hyperparathyroidism of renal origin; E03.9 Hypothyroidism, unspecified; Z98.84 Bariatric surgery status

== ENCOUNTER → 2021-12-18 | Outpatient (REF) | payer BC | LOC: M SFHCCLAY 17:38 | PROVIDERS: ATTEND Family Medicine | DX: E03.9 Hypothyroidism, unspecified (principal); Z53.9 Procedure and treatment not carried out, unspecified reason ==

== ENCOUNTER → 2021-12-31 | Outpatient (CLI) | payer BC | LOC: M WHC 15:02 | PROVIDERS: ATTEND Family Medicine | DX: N25.81 Secondary hyperparathyroidism of renal origin (principal); M85.851 Other specified disorders of bone density and structure, right thigh; M85.852 Other specified disorders of bone density and structure, left thigh; M85.88 Other specified disorders of bone density and structure, other site ==

== ENCOUNTER → 2022-11-04 | Outpatient (REF) | payer BC ==
[~2022-11-04] MED LIST changes: +AMPHET/DEXTR PO; +CHLO125TA PO; +EQL50TAB2 PO; +ERGO500029 PO; +FEROCAP3 PO; +HYDR200T3 PO; +LIOT25TA8 PO; +MULTTAB61 PO; +NORE1CHW2 PO; +OMEG10002 PO; +PREG150C PO; +ROPI1TAB3 PO; +SUPE600T4 PO; +SYNT75TA PO; +VILA40TA PO; +VITA100093 PO
[2022-11-04 11:45] LABS: IRON (FE) 100 UG/DL (50-170); TOTAL IRON BINDING CAPACITY 385 UG/DL (250-425)
[2022-11-04 11:48] LABS: ALBUMIN 3.3 G/DL (3.2-5.2); ALKALINE PHOSPHATASE 77 U/L (46-116); ALT/SGPT 31 U/L (7.0-40); AST/SGOT 31 U/L (<34); BILIRUBIN,TOTAL 0.7 MG/DL (0.3-1.2); BLOOD UREA NITROGEN 11 MG/DL (9-23); CALCIUM LEVEL 9.4 MG/DL (8.5-10.1); CARBON DIOXIDE LEVEL 35 MMOL/L (20-31); CHLORIDE LEVEL 97 MMOL/L (98-107); CHOLESTEROL LEVEL 183 MG/DL (<200); CHOLESTEROL RISK RATIO 2.38 (<5); CREATININE FOR GFR 0.61 MG/DL (0.55-1.30); FREE T3 3.8 PG/ML (2.3-4.2); FREE T4 0.86 NG/DL (0.89-1.76); GLOMERULAR FILTRATION RATE > 60.0 (>58); GLUCOSE, FASTING 115 MG/DL (60-100); HDL CHOLESTEROL 76.8 MG/DL (>40); LDL CHOLESTEROL 83.8 MG/DL (<100); NON-HDL-C 106.2 MG/DL; POTASSIUM SERUM 3.7 MMOL/L (3.5-5.1); PTH INTACT 84.4 PG/ML (18.5-88.0); SODIUM LEVEL 137 MMOL/L (136-145); TOTAL PROTEIN 6.1 G/DL (5.7-8.2); TRIGLYCERIDES LEVEL 112 MG/DL (<150); VITAMIN B12 LEVEL 264 PG/ML (211-911)
== END ==
LOC: M SFHCCLAY 07:09
PROVIDERS: ATTEND Family Medicine
DX: M35.9 Systemic involvement of connective tissue, unspecified (principal); N25.81 Secondary hyperparathyroidism of renal origin; Z98.84 Bariatric surgery status

== ENCOUNTER → 2022-11-08 | Outpatient (CLI) | payer BC | LOC: M LABSMTC 10:40 | PROVIDERS: ATTEND Anesthesiology | DX: Z01.818 Encounter for other preprocedural examination (principal); Z11.52 Encounter for screening for COVID-19 ==

== ENCOUNTER 2022-11-12 09:32 | Day surgery (SDC) | payer BC ==
[~2022-11-12] VITALS: Ht 162.6 cm; Wt 82.1 kg
[~2022-11-12 09:32] MED LIST changes: +NS 1,000 ML IV ONE; +ONDANSETRON 4MG 2ML VIAL As Ordered ONE; +fentaNYL 100 MCG/2 ML INJECTION As Ordered ONE
[2022-11-12] MEDS ORDERED: fentaNYL 100 MCG/2 ML INJECTION As Ordered ONE (10:29)
[2022-11-12] MEDS ORDERED: propofoL 200 MG/20 ML VIAL As Ordered ONE ×2 (10:29→12:15)
[2022-11-12] MEDS ORDERED: LIDOCAINE 2% 100MG/5ML SDV (FOR ANES.) As Ordered ONE (10:29)
[2022-11-12 12:38] VITALS: BP 121/67
== END 2022-11-12 13:01 | disposition home or self-care (01) ==
LOC: M OPP 09:32
PROVIDERS: ATTEND Internal Medicine Gastroenterology
DX: Z12.11 Encounter for screening for malignant neoplasm of colon (principal); Z86.010 Personal history of colon polyps; Z80.0 Family history of malignant neoplasm of digestive organs; D12.6 Benign neoplasm of colon, unspecified; K64.4 Residual hemorrhoidal skin tags; K64.8 Other hemorrhoids; K57.30 Diverticulosis of large intestine without perforation or abscess without bleeding; K22.89 Other specified disease of esophagus; Z98.0 Intestinal bypass and anastomosis status; M79.7 Fibromyalgia; G25.81 Restless legs syndrome; E21.3 Hyperparathyroidism, unspecified; Z79.83 Long term (current) use of bisphosphonates; Z79.84 Long term (current) use of oral hypoglycemic drugs; Z79.890 Hormone replacement therapy; Z79.899 Other long term (current) drug therapy; Z88.2 Allergy status to sulfonamides; Z80.3 Family history of malignant neoplasm of breast; Z80.41 Family history of malignant neoplasm of ovary; Z80.42 Family history of malignant neoplasm of prostate; Z80.51 Family history of malignant neoplasm of kidney
CPT/HCPCS: 43239; 45385; 88305; J3010

== ENCOUNTER → 2023-06-02 | Outpatient (REF) | payer BC ==
[~2023-06-02] MED LIST changes: -HYDR200T3 PO; +HYDR200T46 PO; -NS 1,000 ML IV ONE; -ONDANSETRON 4MG 2ML VIAL As Ordered ONE; -PREG150C PO; +PREG150C2 PO; -ROPI1TAB3 PO; +ROPI1TAB73 PO; -fentaNYL 100 MCG/2 ML INJECTION As Ordered ONE
[2023-06-02 13:40] LABS: BASO % 0.5 % (0.0-1.0); EOS % 0.3 % (0.0-3.0); HEMOGLOBIN 13.2 g/dl (12.0-15.5); LYMPH # 2.5 10^3/uL (1.5-5.0); LYMPH % 39.7 % (24.0-44.0); MEAN CORPUSCULAR HGB CONC 33.8 g/dl (32.0-36.5); MEAN CORPUSCULAR VOLUME 79.8 fl (80.0-96.0); MONO # 0.4 10^3/uL (0.0-0.8); MONO % 6.9 % (2.0-8.0); NEUTROPHILS # 3.2 10^3/uL (1.5-8.5); NEUTROPHILS % 52.4 % (36.0-66.0); PLATELET COUNT, AUTOMATED 290 10^3/uL (150-450); RED BLOOD COUNT 4.89 10^6/uL (4.00-5.40); WHITE BLOOD COUNT 6.2 10^3/uL (4.0-10.0)
[2023-06-02 14:10] LABS: ERYTHROCYTE SEDIMENTATION RATE 11 mm/hr (0-20)
== END ==
LOC: M LABDRAWC 11:30
PROVIDERS: ATTEND Physician Assistant
DX: Z51.81 Encounter for therapeutic drug level monitoring (principal)

== ENCOUNTER → 2023-06-02 | Outpatient (REF) | payer BC ==
[2023-06-06 10:00] LABS: PERCENT SATURATION 23.678 % (15-55)
== END ==
LOC: M SFHCCLAY 07:18
PROVIDERS: ATTEND Family Medicine
DX: Z98.84 Bariatric surgery status (principal)

== ENCOUNTER → 2023-11-15 | Outpatient (REF) | payer BC ==
[2023-11-15 14:00] LABS: COMPLEMENT C3 129.9 MG/DL (90.0-170.0); COMPLEMENT C4 25.9 MG/DL (12-36)
== END ==
LOC: M LABDRAWC 12:05
PROVIDERS: ATTEND Physician Assistant
DX: M35.9 Systemic involvement of connective tissue, unspecified (principal)

== ENCOUNTER → 2023-11-15 | Outpatient (REF) | payer BC ==
[2023-11-15 13:58] LABS: BASO % 0.4 % (0.0-1.0); HEMATOCRIT 37.9 % (36.0-47.0); HEMOGLOBIN 12.8 g/dl (12.0-15.5); LYMPH # 2.8 10^3/uL (1.5-5.0); LYMPH % 36.3 % (24.0-44.0); MEAN CORPUSCULAR HEMOGLOBIN 26.8 pg (27.0-33.0); MEAN CORPUSCULAR HGB CONC 33.8 g/dl (32.0-36.5); MEAN CORPUSCULAR VOLUME 79.5 fl (80.0-96.0); MONO # 0.5 10^3/uL (0.0-0.8); MONO % 6.5 % (2.0-8.0); NEUTROPHILS # 4.4 10^3/uL (1.5-8.5); NEUTROPHILS % 56.5 % (36.0-66.0); PLATELET COUNT, AUTOMATED 276 10^3/uL (150-450); RED BLOOD COUNT 4.77 10^6/uL (4.00-5.40); WHITE BLOOD COUNT 7.8 10^3/uL (4.0-10.0)
[2023-11-15 14:00] LABS: IRON (FE) 105 UG/DL (50-170)
[2023-11-15 14:01] LABS: PERCENT SATURATION 23.6 % (13.2-45.0); TOTAL IRON BINDING CAPACITY 445 UG/DL (250-425)
[2023-11-15 14:02] LABS: ALBUMIN 3.1 G/DL (3.2-5.2); ALKALINE PHOSPHATASE 74 U/L (46-116); ALT/SGPT 20 U/L (7.0-40); AST/SGOT 20 U/L (<34); BILIRUBIN,TOTAL 0.6 MG/DL (0.3-1.2); BLOOD UREA NITROGEN 10 MG/DL (9-23); CALCIUM LEVEL 9.3 MG/DL (8.5-10.1); CARBON DIOXIDE LEVEL 33 MMOL/L (20-31); CHLORIDE LEVEL 100 MMOL/L (98-107); CREATININE FOR GFR 0.53 MG/DL (0.55-1.30); GLOMERULAR FILTRATION RATE > 60.0 (>51); GLUCOSE, FASTING 155 MG/DL (60-100); POTASSIUM SERUM 3.3 MMOL/L (3.5-5.1); SODIUM LEVEL 137 MMOL/L (136-145); TOTAL PROTEIN 6.2 G/DL (5.7-8.2)
[2023-11-15 14:06] LABS: HEMOGLOBIN A1c 6.8 % (4.0-6.0)
== END ==
LOC: M SFHCCLAY 07:06
PROVIDERS: ATTEND Family Medicine
DX: U09.9 Post COVID-19 condition, unspecified (principal); E21.3 Hyperparathyroidism, unspecified; R73.01 Impaired fasting glucose; M79.7 Fibromyalgia

== ENCOUNTER → 2023-12-13 | Outpatient (REF) | payer BC | LOC: M SFHCWAGY 10:25 | PROVIDERS: ATTEND Nurse Practitioner Family | DX: N73.9 Female pelvic inflammatory disease, unspecified (principal) ==

== ENCOUNTER 2023-12-23 11:07 | Day surgery (SDC) | payer BC ==
[~2023-12-23] VITALS: Ht 162.6 cm; Wt 78.5 kg
[~2023-12-23 11:07] MED LIST changes: +CYTO50TA PO; +KETOROLAC 60MG 2ML VIAL As Ordered ONE; +LIDOCAINE 2% 100MG/5ML SDV (FOR ANES.) As Ordered ONE; +LYRI75CA PO; +METF-838 PO; +NORE-3 PO; +ONDANSETRON 4MG 2ML VIAL As Ordered ONE; +propofoL 200 MG/20 ML VIAL As Ordered ONE
[2023-12-23] MEDS ORDERED: MIDAZOLAM INJ 2MG/2ML VIAL As Ordered ONE (12:11)
[2023-12-23] MEDS ORDERED: fentaNYL 100 MCG/2 ML INJECTION As Ordered ONE (12:11)
[2023-12-23] MEDS ORDERED: ACETAMINOPHEN 1000MG 100ML IV BAG As Ordered ONE (12:59)
[2023-12-23] MEDS: ceFAZolin 2 GM/D5W 50 ML IV BAG As Ordered ONE (13:09)
[2023-12-23] MEDS: BACITRACIN OINTMENT 30GM TUBE As Ordered ONE (14:22)
[2023-12-23] MEDS ORDERED: fentaNYL 100 MCG/2 ML INJECTION IV PRN (14:30)
[2023-12-23] MEDS ORDERED: OXYC1TAB23 PO (14:46)
[2023-12-23] MEDS: ONDANSETRON 4MG 2ML VIAL IV PRN (14:54)
[2023-12-23] MEDS: oxyCODONE 5MG TAB PO PRN (14:54)
[2023-12-23] MEDS: HYDROMORPHONE HCL 0.5 MG/ 0.5 ML SYRINGE IV PRN (14:55)
[2023-12-23 15:40] VITALS: BP 145/69; TEMP 97.4; O2SAT 98
== END 2023-12-23 16:25 | disposition home or self-care (01) ==
LOC: M SDC 11:07
PROVIDERS: ATTEND Orthopaedic Surgery Hand Surgery
DX: S61.216A Laceration without foreign body of right little finger without damage to nail, initial encounter (principal); S66.126A Laceration of flexor muscle, fascia and tendon of right little finger at wrist and hand level, initial encounter; X58.XXXA Exposure to other specified factors, initial encounter; Y92.89 Other specified places as the place of occurrence of the external cause; Y93.89 Activity, other specified; Y99.8 Other external cause status; Z88.8 Allergy status to other drugs, medicaments and biological substances; Z88.2 Allergy status to sulfonamides; Z79.899 Other long term (current) drug therapy
CPT/HCPCS: 64831; 64910; C1762; J0131; J0665; J0690; J1100; J1170; J1885; J2250; J2405; J3010

== ENCOUNTER → 2024-01-12 | Outpatient (REF) | payer BC ==
[~2024-01-12] MED LIST changes: -KETOROLAC 60MG 2ML VIAL As Ordered ONE; -LIDOCAINE 2% 100MG/5ML SDV (FOR ANES.) As Ordered ONE; -ONDANSETRON 4MG 2ML VIAL As Ordered ONE; +OXYC1TAB23 PO; -propofoL 200 MG/20 ML VIAL As Ordered ONE
== END ==
LOC: M SFHCWAGY 10:05
PROVIDERS: ATTEND Nurse Practitioner Family
DX: L29.2 Pruritus vulvae (principal)

== ENCOUNTER → 2024-01-20 | Outpatient (CLI) | payer BC | LOC: M WHC 15:57 | PROVIDERS: ATTEND Nurse Practitioner Family | DX: Z12.31 Encounter for screening mammogram for malignant neoplasm of breast (principal) ==

== ENCOUNTER → 2024-02-10 | Outpatient (REF) | payer BC ==
[2024-02-10 11:41] LABS: BASO % 0.4 % (0.0-1.0); EOS % 0.3 % (0.0-3.0); HEMOGLOBIN 13.8 g/dl (12.0-15.5); LYMPH % 30.1 % (24.0-44.0); MEAN CORPUSCULAR HEMOGLOBIN 26.5 pg (27.0-33.0); MEAN CORPUSCULAR HGB CONC 33.7 g/dl (32.0-36.5); MEAN CORPUSCULAR VOLUME 78.7 fl (80.0-96.0); MONO # 0.6 10^3/uL (0.0-0.8); MONO % 8.8 % (2.0-8.0); NEUTROPHILS % 60.3 % (36.0-66.0); PLATELET COUNT, AUTOMATED 264 10^3/uL (150-450); RED BLOOD COUNT 5.21 10^6/uL (4.00-5.40); WHITE BLOOD COUNT 6.7 10^3/uL (4.0-10.0)
[2024-02-10 11:42] LABS: ALBUMIN 3.6 G/DL (3.2-5.2); ALKALINE PHOSPHATASE 78 U/L (46-116); ALT/SGPT 27 U/L (7.0-40); AST/SGOT 19 U/L (<34); BILIRUBIN,TOTAL 0.6 MG/DL (0.3-1.2); BLOOD UREA NITROGEN 12 MG/DL (9-23); CALCIUM LEVEL 9.6 MG/DL (8.5-10.1); CARBON DIOXIDE LEVEL 31 MMOL/L (20-31); CHLORIDE LEVEL 92 MMOL/L (98-107); CREATININE FOR GFR 0.56 MG/DL (0.55-1.30); GLOMERULAR FILTRATION RATE > 60.0 (>51); GLUCOSE, FASTING 312 MG/DL (60-100); IRON (FE) 88 UG/DL (50-170); MAGNESIUM LEVEL 1.4 MG/DL (1.8-2.4); PERCENT SATURATION 21.2 % (13.2-45.0); POTASSIUM SERUM 3.8 MMOL/L (3.5-5.1); SODIUM LEVEL 130 MMOL/L (136-145); TOTAL IRON BINDING CAPACITY 415 UG/DL (250-425); TOTAL PROTEIN 6.7 G/DL (5.7-8.2)
[2024-02-10 11:46] LABS: FOLATE 19.03 NG/ML (>5.4); VITAMIN B12 LEVEL 1916 PG/ML (211-911)
[2024-02-10 11:47] LABS: FERRITIN 32.4 NG/ML (7.3-270.7); THYROID STIMULATING HORMONE 0.014 uIU/ML (0.55-4.78)
[2024-02-10 11:48] LABS: FREE T4 0.79 NG/DL (0.89-1.76)
[2024-02-10 11:50] LABS: HEMOGLOBIN A1c 9.1 % (4.0-6.0)
[2024-02-10 16:44] LABS: PTH INTACT 72.5 PG/ML (18.5-88.0)
[2024-02-10 16:48] LABS: FREE T3 2.3 PG/ML (2.3-4.2)
[2024-02-13 14:02] LABS: ANA PATTERN Nuclear, Speckled (NEGATIVE); ANA SCREEN, IFA POSITIVE (NEGATIVE); ANA TITER 1:40 titer (<1:40)
== END ==
LOC: M SFHCCLAY 07:20
PROVIDERS: ATTEND Physician Assistant
DX: I10 Essential (primary) hypertension (principal); D50.9 Iron deficiency anemia, unspecified; N25.81 Secondary hyperparathyroidism of renal origin; M35.9 Systemic involvement of connective tissue, unspecified; E03.9 Hypothyroidism, unspecified; E11.9 Type 2 diabetes mellitus without complications; R00.0 Tachycardia, unspecified; Z98.84 Bariatric surgery status

== ENCOUNTER → 2024-02-15 | Outpatient (REF) | payer BC ==
[2024-02-15 17:05] LABS: BASO % 0.3 % (0.0-1.0); HEMATOCRIT 40.9 % (36.0-47.0); HEMOGLOBIN 13.6 g/dl (12.0-15.5); LYMPH # 1.2 10^3/uL (1.5-5.0); MEAN CORPUSCULAR HEMOGLOBIN 26.8 pg (27.0-33.0); MEAN CORPUSCULAR HGB CONC 33.3 g/dl (32.0-36.5); MEAN CORPUSCULAR VOLUME 80.5 fl (80.0-96.0); MONO # 0.5 10^3/uL (0.0-0.8); MONO % 5.3 % (2.0-8.0); NEUTROPHILS # 7.2 10^3/uL (1.5-8.5); NEUTROPHILS % 81.1 % (36.0-66.0); PLATELET COUNT, AUTOMATED 240 10^3/uL (150-450); RED BLOOD COUNT 5.08 10^6/uL (4.00-5.40); WHITE BLOOD COUNT 8.9 10^3/uL (4.0-10.0)
[2024-02-15 17:18] LABS: HEMOGLOBIN A1c 8.9 % (4.0-6.0)
[2024-02-15 17:19] LABS: ALBUMIN 3.6 G/DL (3.2-5.2); ALKALINE PHOSPHATASE 77 U/L (46-116); ALT/SGPT 36 U/L (7.0-40); AST/SGOT 30 U/L (<34); BILIRUBIN,TOTAL 0.4 MG/DL (0.3-1.2); BLOOD UREA NITROGEN 10 MG/DL (9-23); CALCIUM LEVEL 9.5 MG/DL (8.5-10.1); CARBON DIOXIDE LEVEL 31 MMOL/L (20-31); CHLORIDE LEVEL 92 MMOL/L (98-107); CREATININE FOR GFR 0.49 MG/DL (0.55-1.30); GLOMERULAR FILTRATION RATE > 60.0 (>51); GLUCOSE, FASTING 297 MG/DL (60-100); POTASSIUM SERUM 3.9 MMOL/L (3.5-5.1); SODIUM LEVEL 130 MMOL/L (136-145); TOTAL PROTEIN 6.5 G/DL (5.7-8.2)
[2024-02-15 17:31] LABS: CREATININE, URINE 9.9 MG/DL; MALB URINE SIEMENS < 3.0 MG/L; MAU/CREAT RATIO 30.3 MCG/MG (0.0-30.0)
== END ==
LOC: M SFHCCLAY 07:01
PROVIDERS: ATTEND Family Medicine
DX: E11.9 Type 2 diabetes mellitus without complications (principal)

== ENCOUNTER → 2024-02-17 | Outpatient (REF) | payer BC | LOC: M SFHCCLAY 16:35 | PROVIDERS: ATTEND Family Medicine | DX: Z53.9 Procedure and treatment not carried out, unspecified reason (principal) ==

== ENCOUNTER → 2024-02-20 | Outpatient (REF) | payer BC ==
[2024-02-20 11:43] LABS: CORTISOL AM 36.7 UG/DL (4.3-22.4)
== END ==
LOC: M SFHCCLAY 06:58
PROVIDERS: ATTEND Family Medicine
DX: E11.9 Type 2 diabetes mellitus without complications (principal); E03.9 Hypothyroidism, unspecified

== ENCOUNTER → 2024-02-22 | Outpatient (REF) | payer BC ==
[2024-02-22 18:38] LABS: BLOOD UREA NITROGEN 8 MG/DL (9-23); CALCIUM LEVEL 9.2 MG/DL (8.5-10.1); CARBON DIOXIDE LEVEL 28 MMOL/L (20-31); CHLORIDE LEVEL 96 MMOL/L (98-107); CREATININE FOR GFR 0.54 MG/DL (0.55-1.30); GLOMERULAR FILTRATION RATE > 60.0 (>51); GLUCOSE, FASTING 244 MG/DL (60-100); POTASSIUM SERUM 4.3 MMOL/L (3.5-5.1); SODIUM LEVEL 127 MMOL/L (136-145)
== END ==
LOC: M SFHCCLAY 15:39
PROVIDERS: ATTEND Family Medicine
DX: E21.3 Hyperparathyroidism, unspecified (principal); E10.9 Type 1 diabetes mellitus without complications

== ENCOUNTER → 2024-03-08 | Outpatient (REF) | payer BC ==
[2024-03-08 12:16] LABS: BLOOD UREA NITROGEN 10 MG/DL (9-23); CALCIUM LEVEL 9.1 MG/DL (8.5-10.1); CARBON DIOXIDE LEVEL 31 MMOL/L (20-31); CHLORIDE LEVEL 99 MMOL/L (98-107); CREATININE FOR GFR 0.53 MG/DL (0.55-1.30); GLOMERULAR FILTRATION RATE > 60.0 (>51); GLUCOSE, FASTING 152 MG/DL (60-100); POTASSIUM SERUM 3.9 MMOL/L (3.5-5.1); SODIUM LEVEL 134 MMOL/L (136-145)
== END ==
LOC: M SFHCCLAY 07:15
PROVIDERS: ATTEND Family Medicine
DX: E10.9 Type 1 diabetes mellitus without complications (principal)

== ENCOUNTER → 2024-03-08 | Outpatient (REF) | payer BC ==
[2024-03-08 12:29] LABS: COMPLEMENT C3 112.4 MG/DL (90.0-170.0); COMPLEMENT C4 24.5 MG/DL (12-36)
== END ==
LOC: M LABDRAWC 11:13
PROVIDERS: ATTEND Physician Assistant
DX: M35.9 Systemic involvement of connective tissue, unspecified (principal)

== ENCOUNTER → 2024-03-12 | Outpatient (CLI) | payer BC ==
[~2024-03-12] MED LIST changes: +PROHANCE 279.3MG/ML 15ML VIAL ONE
== END ==
LOC: M PLAIMG 12:31
PROVIDERS: ATTEND Family Medicine
DX: E21.3 Hyperparathyroidism, unspecified (principal); R76.8 Other specified abnormal immunological findings in serum; R41.3 Other amnesia

== ENCOUNTER → 2024-04-19 | Outpatient (REF) | payer BC ==
[~2024-04-19] MED LIST changes: -PROHANCE 279.3MG/ML 15ML VIAL ONE
== END ==
LOC: M SFHCCLAY 16:39
PROVIDERS: ATTEND Family Medicine
DX: I10 Essential (primary) hypertension (principal); Z53.9 Procedure and treatment not carried out, unspecified reason

== ENCOUNTER → 2024-05-30 | Outpatient (REF) | payer BC ==
[2024-05-30 14:40] LABS: BLOOD UREA NITROGEN 14 MG/DL (9-23); CARBON DIOXIDE LEVEL 33 MMOL/L (20-31); CHLORIDE LEVEL 100 MMOL/L (98-107); CREATININE FOR GFR 0.59 MG/DL (0.55-1.30); GLOMERULAR FILTRATION RATE > 60.0 (>51); GLUCOSE, FASTING 113 MG/DL (60-100); SODIUM LEVEL 137 MMOL/L (136-145)
== END ==
LOC: M SFHCCLAY 07:12
PROVIDERS: ATTEND Family Medicine
DX: I10 Essential (primary) hypertension (principal)

== ENCOUNTER → 2024-07-10 | Outpatient (REF) | payer BC ==
[2024-07-10 12:59] LABS: HEMATOCRIT 36.3 % (36.0-47.0); HEMOGLOBIN 11.8 g/dl (12.0-15.5); MEAN CORPUSCULAR HEMOGLOBIN 25.8 pg (27.0-33.0); MEAN CORPUSCULAR HGB CONC 32.5 g/dl (32.0-36.5); MEAN CORPUSCULAR VOLUME 79.4 fl (80.0-96.0); PLATELET COUNT, AUTOMATED 328 10^3/uL (150-450); RED BLOOD COUNT 4.57 10^6/uL (4.00-5.40); WHITE BLOOD COUNT 7.2 10^3/uL (4.0-10.0)
[2024-07-10 13:29] LABS: ALBUMIN 3.3 G/DL (3.2-5.2); ALKALINE PHOSPHATASE 76 U/L (35-104); ALT/SGPT 26 U/L (7.0-40); AST/SGOT 24 U/L (<34); BILIRUBIN,TOTAL 0.5 MG/DL (0.3-1.2); BLOOD UREA NITROGEN 9 MG/DL (9-23); CALCIUM LEVEL 9.6 MG/DL (8.5-10.1); CARBON DIOXIDE LEVEL 32 MMOL/L (20-31); CHLORIDE LEVEL 100 MMOL/L (98-107); CHOLESTEROL LEVEL 185 MG/DL (<200); CHOLESTEROL RISK RATIO 1.96 (<5); CREATININE FOR GFR 0.53 MG/DL (0.55-1.30); GLOMERULAR FILTRATION RATE > 60.0 (>51); GLUCOSE, FASTING 112 MG/DL (60-100); HDL CHOLESTEROL 94.1 MG/DL (>40); IRON (FE) 62 UG/DL (50-170); LDL CHOLESTEROL 76.7 MG/DL (<100); MAGNESIUM LEVEL 1.8 MG/DL (1.8-2.4); NON-HDL-C 90.9 MG/DL; PERCENT SATURATION 13.4 % (13.2-45.0); POTASSIUM SERUM 3.8 MMOL/L (3.5-5.1); SODIUM LEVEL 134 MMOL/L (136-145); TOTAL IRON BINDING CAPACITY 461 UG/DL (250-425); TOTAL PROTEIN 6.3 G/DL (5.7-8.2); TRIGLYCERIDES LEVEL 71 MG/DL (<150)
[2024-07-10 13:30] LABS: FERRITIN 10.6 NG/ML (7.3-270.7); FOLATE 16.82 NG/ML (>5.4); PTH INTACT 73.7 PG/ML (18.5-88.0); TOTAL 25(OH) VITAMIN D 91.6 NG/ML (20.0-100.0)
== END ==
LOC: M SFHCCLAY 07:14
PROVIDERS: ATTEND Family Medicine
DX: I10 Essential (primary) hypertension (principal); F32.9 Major depressive disorder, single episode, unspecified; N25.81 Secondary hyperparathyroidism of renal origin; E03.9 Hypothyroidism, unspecified; Z98.84 Bariatric surgery status; M79.7 Fibromyalgia; D50.9 Iron deficiency anemia, unspecified; M35.9 Systemic involvement of connective tissue, unspecified; R00.0 Tachycardia, unspecified; E11.9 Type 2 diabetes mellitus without complications

== ENCOUNTER 2024-08-16 08:20 | Outpatient (CLI) | payer BC ==
[~2024-08-16] VITALS: Ht 162.6 cm; Wt 74.5 kg
[~2024-08-16 08:20] MED LIST changes: +ALBUTEROL SULFATE 2.5MG/0.5ML INH NEB SOLN INH PRN; +EPINEPHrine INJ 1 MG/ML 1ML AMP IM PRN; +diphenhydrAMINE 50MG/ML VIAL IV PRN
[2024-08-16 08:30] VITALS: BP 128/59; O2SAT 97
[2024-08-16] MEDS: IRON SUCROSE 500 MG in NS 250 ML OVER 4 HRS IV ONE (09:16)
[2024-08-16 10:15] VITALS: BP 131/72; O2SAT 98
[2024-08-16 11:15] VITALS: BP 139/72; O2SAT 100
[2024-08-16 13:30] VITALS: BP 143/73; O2SAT 97
[2024-08-16] MEDS: methylPREDNISolone 125MG 2ML VIAL IV PRN (13:50)
[2024-08-16 15:00] VITALS: BP 145/80; O2SAT 100
== END 2024-08-16 15:00 ==
LOC: M INFU 08:20
PROVIDERS: ATTEND Family Medicine
DX: D50.9 Iron deficiency anemia, unspecified (principal); Z88.2 Allergy status to sulfonamides; Z88.8 Allergy status to other drugs, medicaments and biological substances
CPT/HCPCS: 96365; 96366; 96375; J1756; J2919

== ENCOUNTER 2024-08-30 07:53 | Outpatient (CLI) | payer BC ==
[~2024-08-30] VITALS: Ht 162.6 cm; Wt 70.9 kg
[~2024-08-30 07:53] MED LIST changes: +AMPH1CAP14 PO; +AMPH1CAP16 PO; +AMPH1CAP9 PO; +CLAR10CA3 PO; +CYCL5TAB4 PO; +FLON1SPR; +HYDR25OI TOP; +INSU100V6 SC; +MAG100TA PO; +PREG75CA3 PO; +TACR0.1O TOP; +TRES1INJ2; +[UNRECOGNIZED DRUG - CODE] TP; +methylPREDNISolone 125MG 2ML VIAL IV PRN
[2024-08-30 08:09] VITALS: BP 143/63; O2SAT 100
[2024-08-30] MEDS: IRON SUCROSE 500 MG in NS 250 ML OVER 4 HRS IV ONE (09:10)
[2024-08-30 10:00] VITALS: BP 133/71; O2SAT 97
[2024-08-30 11:00] VITALS: BP 150/75; O2SAT 97
[2024-08-30 13:30] VITALS: BP 157/79; O2SAT 94
== END 2024-08-30 13:30 | disposition home or self-care (01) ==
LOC: M INFU 07:53
PROVIDERS: ATTEND Family Medicine
DX: D50.9 Iron deficiency anemia, unspecified (principal); Z88.2 Allergy status to sulfonamides; Z88.8 Allergy status to other drugs, medicaments and biological substances
CPT/HCPCS: 96365; 96366; J1756

== ENCOUNTER → 2024-09-10 | Outpatient (REF) | payer BC ==
[~2024-09-10] MED LIST changes: -ALBUTEROL SULFATE 2.5MG/0.5ML INH NEB SOLN INH PRN; -EPINEPHrine INJ 1 MG/ML 1ML AMP IM PRN; -diphenhydrAMINE 50MG/ML VIAL IV PRN; -methylPREDNISolone 125MG 2ML VIAL IV PRN
[2024-09-10 12:06] LABS: BASO % 0.5 % (0.0-1.0); EOS # 0.1 10^3/uL (0.0-0.5); EOS % 2.5 % (0.0-3.0); HEMATOCRIT 37.6 % (36.0-47.0); HEMOGLOBIN 12.2 g/dl (12.0-15.5); LYMPH # 2.4 10^3/uL (1.5-5.0); LYMPH % 43.5 % (24.0-44.0); MEAN CORPUSCULAR HEMOGLOBIN 25.6 pg (27.0-33.0); MEAN CORPUSCULAR HGB CONC 32.4 g/dl (32.0-36.5); MEAN CORPUSCULAR VOLUME 78.8 fl (80.0-96.0); MONO # 0.4 10^3/uL (0.0-0.8); MONO % 7.8 % (2.0-8.0); NEUTROPHILS # 2.6 10^3/uL (1.5-8.5); NEUTROPHILS % 45.7 % (36.0-66.0); PLATELET COUNT, AUTOMATED 279 10^3/uL (150-450); RED BLOOD COUNT 4.77 10^6/uL (4.00-5.40); WHITE BLOOD COUNT 5.6 10^3/uL (4.0-10.0)
[2024-09-10 12:24] LABS: HEMOGLOBIN A1c 7.2 % (4.0-6.0)
[2024-09-10 12:34] LABS: ALBUMIN 3.4 G/DL (3.2-5.2); ALKALINE PHOSPHATASE 84 U/L (35-104); ALT/SGPT 27 U/L (7.0-40); AST/SGOT 20 U/L (<34); BILIRUBIN,TOTAL 0.4 MG/DL (0.3-1.2); BLOOD UREA NITROGEN 5 MG/DL (9-23); CALCIUM LEVEL 9.3 MG/DL (8.5-10.1); CARBON DIOXIDE LEVEL 32 MMOL/L (20-31); CHLORIDE LEVEL 95 MMOL/L (98-107); CREATININE FOR GFR 0.53 MG/DL (0.55-1.30); FREE T3 3.5 PG/ML (2.3-4.2); FREE T4 0.86 NG/DL (0.89-1.76); GLOMERULAR FILTRATION RATE > 60.0 (>51); GLUCOSE, FASTING 150 MG/DL (60-100); POTASSIUM SERUM 3.6 MMOL/L (3.5-5.1); SODIUM LEVEL 136 MMOL/L (136-145); TOTAL PROTEIN 6.3 G/DL (5.7-8.2)
== END ==
LOC: M SFHCCLAY 07:13
PROVIDERS: ATTEND Nurse Practitioner Family
DX: Z01.818 Encounter for other preprocedural examination (principal); Z98.84 Bariatric surgery status; E10.9 Type 1 diabetes mellitus without complications; M79.7 Fibromyalgia; I10 Essential (primary) hypertension; F32.9 Major depressive disorder, single episode, unspecified; N25.81 Secondary hyperparathyroidism of renal origin; D50.9 Iron deficiency anemia, unspecified; M35.9 Systemic involvement of connective tissue, unspecified; N95.9 Unspecified menopausal and perimenopausal disorder; L90.0 Lichen sclerosus et atrophicus

== ENCOUNTER → 2024-12-10 | Outpatient (REF) | payer BC ==
[2024-12-10 12:58] LABS: BASO # 0.1 10^3/uL (0.0-0.2); EOS # 0.4 10^3/uL (0.0-0.5); EOS % 6.3 % (0.0-3.0); HEMATOCRIT 38.8 % (36.0-47.0); HEMOGLOBIN 13.1 g/dl (12.0-15.5); LYMPH # 2.3 10^3/uL (1.5-5.0); LYMPH % 38.9 % (24.0-44.0); MEAN CORPUSCULAR HEMOGLOBIN 26.7 pg (27.0-33.0); MEAN CORPUSCULAR HGB CONC 33.8 g/dl (32.0-36.5); MONO # 0.5 10^3/uL (0.0-0.8); MONO % 7.8 % (2.0-8.0); NEUTROPHILS # 2.7 10^3/uL (1.5-8.5); NEUTROPHILS % 45.8 % (36.0-66.0); PLATELET COUNT, AUTOMATED 269 10^3/uL (150-450); RED BLOOD COUNT 4.91 10^6/uL (4.00-5.40); WHITE BLOOD COUNT 5.9 10^3/uL (4.0-10.0)
[2024-12-10 13:19] LABS: IRON (FE) 60 UG/DL (50-170); PERCENT SATURATION 19.9 % (13.2-45.0); TOTAL IRON BINDING CAPACITY 302 UG/DL (250-425)
[2024-12-10 13:23] LABS: FERRITIN 103.4 NG/ML (7.3-270.7); THYROID STIMULATING HORMONE < 0.010 uIU/ML (0.55-4.78)
[2024-12-10 13:25] LABS: FREE T4 0.79 NG/DL (0.89-1.76)
[2024-12-10 13:26] LABS: FREE T3 3.1 PG/ML (2.3-4.2)
== END ==
LOC: M SFHCCLAY 07:03
PROVIDERS: ATTEND Nurse Practitioner Family
DX: D50.9 Iron deficiency anemia, unspecified (principal); Z98.84 Bariatric surgery status; E03.9 Hypothyroidism, unspecified

== ENCOUNTER → 2024-12-17 | Outpatient (REF) | payer BC | LOC: M SFHCWAGY 17:15 | PROVIDERS: ATTEND Nurse Practitioner Family | DX: Z12.4 Encounter for screening for malignant neoplasm of cervix (principal); Z11.51 Encounter for screening for human papillomavirus (HPV) ==

== ENCOUNTER → 2024-12-17 | Outpatient (CLI) | payer BC | LOC: M WHC 13:59 | PROVIDERS: ATTEND Nurse Practitioner Family | DX: Z12.31 Encounter for screening mammogram for malignant neoplasm of breast (principal) ==

== ENCOUNTER → 2025-03-21 | Outpatient (REF) | payer BC ==
[~2025-03-21] MED LIST changes: -EQL50TAB2 PO; +VITA1TAB82 PO
== END ==
LOC: M SFHCCLAY 07:47
PROVIDERS: ATTEND Nurse Practitioner Family
DX: R19.7 Diarrhea, unspecified (principal)

== ENCOUNTER → 2025-06-03 | Outpatient (CLI) | payer BC | LOC: M CARPUL 16:01 | PROVIDERS: ATTEND Nurse Practitioner Family | DX: R01.1 Cardiac murmur, unspecified (principal) ==

== ENCOUNTER → 2025-08-02 | Outpatient (REF) | payer BC ==
[2025-08-02 12:55] LABS: BASO # 0.1 10^3/uL (0.0-0.2); BASO % 1.0 % (0.0-1.0); EOS # 0.6 10^3/uL (0.0-0.5); EOS % 9.4 % (0.0-3.0); LYMPH # 2.3 10^3/uL (1.5-5.0); LYMPH % 33.5 % (24.0-44.0); MONO # 0.5 10^3/uL (0.0-0.8); MONO % 7.4 % (2.0-8.0); NEUTROPHILS # 3.3 10^3/uL (1.5-8.5); NEUTROPHILS % 48.6 % (36.0-66.0); PLATELET COUNT, AUTOMATED 311 10^3/uL (150-450)
[2025-08-02 13:21] LABS: FREE T4 1.09 NG/DL (0.89-1.76)
[2025-08-02 13:25] LABS: VITAMIN B12 LEVEL 712 PG/ML (211-911)
[2025-08-02 13:26] LABS: ALT/SGPT 29 U/L (7.0-40); AST/SGOT 25 U/L (<34); CALCIUM LEVEL 9.3 MG/DL (8.5-10.1); CARBON DIOXIDE LEVEL 34 MMOL/L (20-31); CHLORIDE LEVEL 97 MMOL/L (98-107); CHOLESTEROL LEVEL 165 MG/DL (<200); CHOLESTEROL RISK RATIO 1.87 (<5); CREATININE FOR GFR 0.51 MG/DL (0.55-1.30); GLOMERULAR FILTRATION RATE > 90.0 (>51); IRON (FE) 70 UG/DL (50-170); LDL CHOLESTEROL 66.4 MG/DL (<100); NON-HDL-C 76.8 MG/DL; PERCENT SATURATION 22.4 % (13.2-45.0); POTASSIUM SERUM 4.3 MMOL/L (3.5-5.1); PTH INTACT 86.0 PG/ML (18.5-88.0); SODIUM LEVEL 137 MMOL/L (136-145); TRIGLYCERIDES LEVEL 52 MG/DL (<150)
[2025-08-02 14:06] LABS: ESTIMATED AVERAGE GLUCOSE 140.0 MG/DL (60-110)
[2025-08-05 04:06] LABS: VITAMIN D 1,25 DIHYDROXY 41.3 pg/mL (24.8-81.5); ZINC RBC 1046.0 ug/dL (1005-1559)
[2025-08-06 05:51] LABS: COPPER PLASMA 109 mcg/dL (70-175)
[2025-08-06 21:46] LABS: VITAMIN E(ALPHA TOCOPHEROL) 12.0 mg/L (5.7-19.9); VITAMIN E(GAMMA TOCOPHEROL) < 1.0 mg/L (<=4.3)
== END ==
LOC: M SFHCCLAY 07:03
PROVIDERS: ATTEND Nurse Practitioner Family
DX: E10.9 Type 1 diabetes mellitus without complications (principal); I10 Essential (primary) hypertension; R19.7 Diarrhea, unspecified; R01.1 Cardiac murmur, unspecified; Z98.84 Bariatric surgery status; M79.7 Fibromyalgia; F32.9 Major depressive disorder, single episode, unspecified; N25.81 Secondary hyperparathyroidism of renal origin; D50.9 Iron deficiency anemia, unspecified; M35.9 Systemic involvement of connective tissue, unspecified; N95.9 Unspecified menopausal and perimenopausal disorder; L90.0 Lichen sclerosus et atrophicus; G25.81 Restless legs syndrome; R53.82 Chronic fatigue, unspecified; E03.9 Hypothyroidism, unspecified; G62.9 Polyneuropathy, unspecified